=== PATIENT | female | born 1975 | race American Indian/Alaskan Native ===

== ENCOUNTER 2017-12-17 12:44 | Outpatient (CLI) | payer BC ==
--- NOTE | 2017-12-17 15:14 | Ultrasound Report ---
TRANSABDOMINAL AND TRANSVAGINAL PELVIC ULTRASOUND: 12/17/17 12:44:00 CLINICAL: Pelvic pain. FINDINGS: Transabdominal and transvaginal pelvic ultrasound demonstrated a small fibroid uterus measuring 7.4 x 3.8 x 4.5 cm. The largest fibroid is located anterior fundal intramural and measures 1.2 x 0.9 x 1.1 cm. Several additional smaller fibroids. The endometrium is normal and measures 2.0 m AP thickness. A 2.6 cm dominant follicle the right ovary. The right ovary measures 2.9 x 1.8 x 1.4cm. A left ovary was not identified. No adnexal mass. No free fluid. Normal urinary bladder. IMPRESSION: 1. Small uterine leiomyomata. 2. Normal right ovary with a 2.6 cm dominant follicle. 3. No left ovary seen.
== END 2017-12-17 12:45 | disposition home or self-care (01) ==
LOC: SPVWC 12:44
PROVIDERS: ATTEND Family Medicine
DX: D25.9 Leiomyoma of uterus, unspecified (principal); I10 Essential (primary) hypertension; F41.9 Anxiety disorder, unspecified; F32.9 Major depressive disorder, single episode, unspecified
CPT/HCPCS: 76830; 76856